=== PATIENT | male | born 1975 ===

== ENCOUNTER 2019-11-19 12:58 | Observation (INO) | payer OTHER ==
--- NOTE | 2019-11-19 13:10 | ED ---
General Adult HPI - General Stated complaint: ETOH Time Seen by Provider: 11/19/19 12:58 Source: patient, EMS, RN notes reviewed, old records reviewed - History of Present Illness Initial comments: This a 44-year-old male who presents emergency department intoxicated. EMS was called to scene because a bystander witnessed the patient being very unstable and hitting his head up against some sort of bites. Patient was cooperative to go with EMS when they got close to the hospital he started to become uncooperative and please had to be called again to bring him into the hospital. Patient is clearly intoxicated having a difficult time standing. Patient states she doesn't want be her but clearly is too intoxicated to be let go on his own recognizance. Patient denies any complaints at all. Patient shows no sign of injury to his head he denies any headache. Patient denies any drug use. Patient states he was obviously drinking. - Related Data Allergies Allergy/AdvReac Type Severity Reaction Status Date / Time Unable to Assess Allergy Verified 11/19/19 13:44 Review of Systems ROS Statement: Those systems with pertinent positive or pertinent negative responses have been documented in the HPI. ROS Other: All systems not noted in ROS Statement are negative. General Exam - General Exam Comments Initial Comments: GENERAL: Patient is well-developed and well-nourished. Patient is nontoxic and well- hydrated and is in no acute distress. Patient appears to be heavily intoxicated ENT: Neck is soft and supple. No significant lymphadenopathy is noted. Oropharynx is clear. Moist mucous membranes. Neck has full range of motion without eliciting any pain. EYES: The sclera were anicteric and conjunctiva were pink and moist. Extraocular movements were intact and pupils were equal round and reactive to light. Eyelids were unremarkable. PULMONARY: Unlabored respirations. Good breath sounds bilaterally. No audible rales rhonchi or wheezing was noted. CARDIOVASCULAR: There is a regular rate and rhythm without any murmurs gallops or rubs. ABDOMEN: Soft and nontender with normal bowel sounds. SKIN: Skin is clear with no lesions or rashes and otherwise unremarkable. NEUROLOGIC: Patient is alert and oriented x3. Cranial nerves II through XII are grossly intact. Motor and sensory are also intact. Normal speech, volume and content. Symmetrical smile. Patient's unstable on his feet MUSCULOSKELETAL: Normal extremities with adequate strength and full range of motion. LYMPHATICS: No significant lymphadenopathy is noted PSYCHIATRIC: Unable to assess secondary to his intoxication. Course Vital Signs 11/19/19 13:24 Temperature 97.6 F Pulse Rate 86 Respiratory 18 Rate Blood Pressure 146/92 O2 Sat by Pulse 95 Oximetry Medical Decision Making - Medical Decision Making Patient's alcohol is 390. Patient's incapable of finding anyone to take him home. I started an IV and the patient and I gave the patient. I gave the patient a fluid bolus. I spoke with Dr. Dodson she agreed to admit the patient admitted the patient wrote admitting orders - Lab Data Lab Results 11/19/19 Range/Units 13:22 Serum Alcohol 390 H* mg/dL Disposition Clinical Impression: Alcoholic intoxication Disposition: ADMITTED IP TO THIS HOSP Time of Disposition: 13:59
[2019-11-19 13:29] VITALS: RESP 18
[2019-11-19] MEDS ORDERED: SODIUM CHLORIDE 0.9% 1,000 ML IV ONE (13:57)
[2019-11-19] MEDS ORDERED: LORazepam 2 MG/ML INJ IV PRN ×3 (14:01)
[2019-11-19] MEDS ORDERED: THIAMINE 100 MG/ML 2 ML VIAL IM STA (14:01)
[2019-11-19] MEDS ORDERED: SODIUM CHLORIDE 0.9% 1,000 ML with MVI, ADULT NO.4 WITH VIT K 10 ML, THIAMINE 100 MG, F... IV ONE ×4 (14:30)
[2019-11-19 14:41] LABS: Basophils # (A) 0.1 k/uL (0-0.2); Basophils % (A) 1 %; Eosinophils # (A) 0.3 k/uL (0-0.7); Eosinophils % (A) 4 %; HCT 47.8 % (39.0-53.0); HGB 15.4 gm/dL (13.0-17.5); Lymphocytes # (A) 3.8 k/uL (1.0-4.8); Lymphocytes % (A) 51 %; MCH 29.4 pg (25.0-35.0); MCHC 32.1 g/dL (31.0-37.0); MCV 91.6 fL (80.0-100.0); Mean Platelet Volume 6.6; Monocytes # (A) 0.3 k/uL (0-1.0); Monocytes % (A) 4 %; Neutrophils # (A) 2.7 k/uL (1.3-7.7); Neutrophils % (A) 36 %; Platelet Count 263 k/uL (150-450); RBC 5.22 m/uL (4.30-5.90); RDW 14.8 % (11.5-15.5); WBC 7.5 k/uL (3.8-10.6)
[2019-11-19 14:46] LABS: ALT 64 U/L (4-49); AST 47 U/L (17-59); African American GFR (CKD) >90 (>60 ml/min/1.73 sqM); Albumin 4.3 g/dL (3.5-5.0); Alkaline Phosphatase 172 U/L (38-126); Anion Gap 10 mmol/L; Blood Urea Nitrogen 6 mg/dL (9-20); Calcium 8.3 mg/dL (8.4-10.2); Carbon Dioxide 24 mmol/L (22-30); Chloride 113 mmol/L (98-107); Glucose 128 mg/dL (74-99); Magnesium 2.3 mg/dL (1.6-2.3); Non-African American GFR(CKD) >90 (>60 ml/min/1.73 sqM); Potassium 3.8 mmol/L (3.5-5.1); Sodium 147 mmol/L (137-145); Total Bilirubin 0.4 mg/dL (0.2-1.3); Total Protein 7.1 g/dL (6.3-8.2)
[2019-11-19 15:44] VITALS: BP 127/86; PULSE 80; TEMP 97.4
[2019-11-19] MEDS ORDERED: THIAMINE 100 MG TAB PO SCH (17:30)
--- NOTE | 2019-11-19 18:44 | P.HPIM ---
History of Present Illness H&P Date: 11/19/19 Chief Complaint: intoxication THIS WILL SERVE as H adn P and Discharge summary as patient admitted and discharged during the same encounter. Patient is a 44-year-old male with a history of alcohol use disorder, tobacco abuse, and obesity who was brought in by EMS on the police after being found intoxicated on a public each and possibly injuring his head on a metal sign. In the ER he underwent an extensive evaluation. His vital signs were normal on arrival. He had no external markings on his head to indicate any type of head trauma. He was found to be significantly intoxicated with a blood alcohol level of 390. In the ER they were unable to contact family to take the patient home with a safe environment. His initial blood work did show a sodium of 147, glucose 128, ALT 64, and alk phosphatases 172. He was placed in observation for closer monitoring. Approximately 10 minutes after arriving to the floor patient patient's friend Zara arrived and agreed to take the patient home under her care and monitor him for sobriety. Patient was demanding to be released and threatening to leave AGAINST MEDICAL ADVICE. Patient seen and examined at bedside. He appears to still be slightly inebriated. He is jolly and cooperative on exam. He denies any headache, double vision, blurry vision, chest pain, shortness of breath, nausea, vomiting, diarrhea, or inability to move parts of his body. He is asking for cocaine and a shot of morphine. 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 They also state that he does not use illicit drugs frequently. Review of Systems Pertinent positives and negatives as discussed in HPI, a complete review of systems was performed and all other systems are negative. 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 No significant issues noted on an osteopathic structural exam other than those noted in the History and Physical/Consult. Vitals: Vital Signs Temp Pulse Pulse Resp BP BP Pulse Ox 11/19/19 15:30 97.4 F L 80 18 127/86 98 11/19/19 13:24 97.6 F 86 18 146/92 95 Intake and Output 11/19/19 11/19/19 11/19/19 06:59 14:59 22:59 Other: Weight 127.006 kg 127.006 kg General: non toxic, no distress, appears at stated age, normal weight Derm: no unusual rashes/lesions no unusual ecchymoses, warm, dry Head: atraumatic, normocephalic, symmetric Eyes: EOMI, no lid lag, anicteric sclera, pupils equal round reactive to light ENT: Nose and ears atraumatic, no thrush, no pharyngeal erythema Neck: No thyromegaly, no cervical lymphadenopathy, trachea midline, supple Mouth: no lip lesion, mucus membranes moist Cardiovascular: S1S2 reg, no murmur, positive posterior tibial pulse bilateral, no edema, capillary refill less than 2 seconds Lungs: CTA bilateral, no rhonchi, no rales , no accessory muscle use Abdominal: soft, nontender to palpation, no guarding, no appreciable orga nomegaly, normal bowel sounds Ext: no gross muscle atrophy, muscle strength 5 out of 5 in all 4 extremities grossly, no contractures, Neuro: CN II-XI grossly intact, light touch intact all 4 extremities, finger to nose within normal limits, Psych: Alert, oriented, [place] nad Joking not able to have a serious conversation Results CBC & Chem 7: 11/19/19 13:11 11/19/19 13:11 Labs: Abnormal Lab Results - Last 24 Hours (Table) 11/19/19 11/19/19 Range/Units 13:11 13:22 Sodium 147 H (137-145) mmol/L Chloride 113 H (98-107) mmol/L BUN 6 L (9-20) mg/dL Glucose 128 H (74-99) mg/dL Calcium 8.3 L (8.4-10.2) mg/dL ALT 64 H (4-49) U/L Alkaline Phosphatase 172 H (38-126) U/L Serum Alcohol 390 H* mg/dL Thrombosis Risk Factor Assmnt - DVT/VTE Prophylaxis DVT/VTE Prophylaxis: Low risk, early ambulation encouraged - Choose All That Apply Any of the Below Risk Factors Present?: No Assessment and Plan Assessment: Acute alcohol intoxication - supportive care - released to the care of his freind - instructed not to drive until sober - encouraged to abstain from drinking - Patient released to the care of Zara Mildred who is willing to take responsibility for ensuring his safety and return to medical care if he is sleepy, lethargic, altered mentation, or vomiting. She is aware that he could be more obtunded and needs to be monitored Dehydration and hyponatremia - encourge oral fluid intake - received 1L of IVF Obesity - structured outpatient weight loss Patient admitted and discharged in the same encourage. Discharge instructions completed.
== END 2019-11-19 18:16 | disposition home or self-care (01) ==
LOC: EC 12:58 → 5NMEDONC 14:00
PROVIDERS: ADMIT Internal Medicine; ATTEND Internal Medicine
DX: F10.129 Alcohol abuse with intoxication, unspecified (principal); Y90.8 Blood alcohol level of 240 mg/100 ml or more; E87.1 Hypo-osmolality and hyponatremia; E86.0 Dehydration; Z72.0 Tobacco use; E66.9 Obesity, unspecified; Z68.38 Body mass index [BMI] 38.0-38.9, adult
CPT/HCPCS: 96372; 99285; 36415; 80053; 83735; 85025; 80320; G0378; J3411